=== PATIENT | male | born 1955 ===

== ENCOUNTER 2025-10-19 10:10 | Inpatient (IN) | payer SELFPAY ==
[~2025-10-19] VITALS: Ht 172.7 cm; Wt 71.4 kg
[2025-10-19 10:59] LABS: BASOPHILS ABSOLUTE AUTO 0.05 K/mm3 (0.00-0.23); BASOPHILS PERCENT AUTO 0 % (0-2); EOSINOPHILS ABSOLUTE AUTO 0.07 K/mm3 (0.00-0.68); EOSINOPHILS PERCENT AUTO 0 % (0-6); Hematocrit 47.1 % (37.0-53.0); Hemoglobin 16.4 g/dL (13.5-17.5); IMMATURE GRAN ABSOLUTE AUTO 0.09 K/mm3 (0.00-0.10); IMMATURE GRAN PERCENT AUTO 1 % (0-1); LYMPHOCYTES ABSOLUTE AUTO 2.66 K/mm3 (0.84-5.20); LYMPHOCYTES PERCENT AUTO 14 % (21-46); MONOCYTES ABSOLUTE AUTO 1.37 K/mm3 (0.16-1.47); MONOCYTES PERCENT AUTO 7 % (4-13); Mean Corpuscular HGB Conc 34.8 g/dL (31.5-36.5); Mean Corpuscular Volume 94 fL (80-100); NEUTROPHILS ABSOLUTE AUTO 15.39 K/mm3 (1.96-9.15); NEUTROPHILS PERCENT AUTO 78 % (41-73); NRBC ABSOLUTE 0.00 K/mm3 (0.00-0.02); NRBC Auto 0.0 /100 WBC (0.0-0.2); Platelet Count 213 K/mm3 (150-400); RDW Coefficient Variation 12.6 % (11.7-14.2); RDW Standard Deviation 43.6 fL (35.1-46.3)
[2025-10-19 11:29] LABS: Alanine Aminotransfer (ALT/SGP 130.0 U/L (12-78); Albumin, Blood 3.7 g/dL (3.4-5.0); Albumin/Globulin Ratio 0.9 (0.8-1.8); Anion Gap 9.0 mmol/L (3-11); Aspartate Aminotrans (AST/SGOT 65.0 U/L (12-37); Bilirubin, Total 1.4 mg/dL (0.1-1.0); Blood Urea Nitrogen 16.0 mg/dL (8-24); CO2, Blood 25.0 mmol/L (21-32); Calcium, Blood 8.8 mg/dL (8.5-10.1); Chloride, Blood 103.0 mmol/L (98-108); Creatinine, Blood 0.86 mg/dL (0.60-1.20); Globulin, Blood 4.0 g/dL (2.2-4.0); Glucose, Blood 163.0 mg/dL (70-99); Potassium, Blood 4.2 mmol/L (3.5-5.5); Sodium, Blood 133.0 mmol/L (136-145); Total Protein, Blood 7.7 g/dL (6.4-8.2)
[2025-10-19] MEDS ORDERED: Morphine Sulfate 4 MG/1 ML Injection IV ONE (12:40)
[2025-10-19] MEDS ORDERED: Piperacillin/Tazobactam Sod 4.5 GM in NS 100 ML IV ONE (14:20)
[2025-10-19] MEDS ORDERED: Ondansetron HCl 2 MG / ML 2ML Vial IV PRN (14:50)
[2025-10-19] MEDS ORDERED: HYDROmorphone HCl/Pf 1MG SYR IV PRN (14:50)
[2025-10-19] MEDS ORDERED: FLU VACC TS2025(65UP)/MF59C/PF 45 MCG/0.5 ML SYRINGE IM SCH (14:55)
[2025-10-19] MEDS ORDERED: MetroNIDAZOLE 500MG/NS 100 ml 100 ML IV ONE (15:25)
[2025-10-19] MEDS ORDERED: Ciprofloxacin 400MG/D5 200ML 200 ML IV ONE (15:25)
[2025-10-19 15:53] VITALS: BP 126/78
--- NOTE | 2025-10-19 17:38 | NUR ---
SHIFT SUMMARY PT BROUGHT UP FROM THE ER TODAY ADMITTED FOR AN ACUTE NOREEN, A/OX4, VSS, HE IS ABLE TO TOLERATE FLUID INTAKE PO, PRIMARILY AZERBAIJANI SPEAKING SO THE DIETITIAN CONSULTANT PHONE WAS SET UP IN HIS ROOM. DISCUSSED HOME MEDS AND MEDICAL HX WITH HIM, HE REPORTS NOT TAKING ANY HOME MEDICATIONS. PLAN FOR SURGERY TOMORROW, NPO AT MIDNIGHT. CALL LIGHT IN REACH.
[2025-10-19] MEDS ORDERED: Piperacillin/Tazobactam Sod 3.375 GM in NS 100 ML IV SCH (18:00)
[2025-10-19 19:09] VITALS: BP 133/69
[2025-10-19] MEDS ORDERED: NS 250 ML IV PRN (21:55)
[2025-10-20] VITALS (16 sets, daily range): BP systolic 116–140; BP diastolic 63–85
[2025-10-20 03:15] LABS: BASOPHILS ABSOLUTE AUTO 0.04 K/mm3 (0.00-0.23); BASOPHILS PERCENT AUTO 0 % (0-2); EOSINOPHILS ABSOLUTE AUTO 0.33 K/mm3 (0.00-0.68); EOSINOPHILS PERCENT AUTO 2 % (0-6); Hematocrit 41.4 % (37.0-53.0); Hemoglobin 14.5 g/dL (13.5-17.5); IMMATURE GRAN ABSOLUTE AUTO 0.08 K/mm3 (0.00-0.10); IMMATURE GRAN PERCENT AUTO 0 % (0-1); LYMPHOCYTES ABSOLUTE AUTO 2.30 K/mm3 (0.84-5.20); LYMPHOCYTES PERCENT AUTO 12 % (21-46); MONOCYTES ABSOLUTE AUTO 1.59 K/mm3 (0.16-1.47); MONOCYTES PERCENT AUTO 9 % (4-13); Mean Corpuscular HGB Conc 35.0 g/dL (31.5-36.5); Mean Corpuscular Volume 93 fL (80-100); NEUTROPHILS ABSOLUTE AUTO 14.34 K/mm3 (1.96-9.15); NEUTROPHILS PERCENT AUTO 77 % (41-73); NRBC ABSOLUTE 0.00 K/mm3 (0.00-0.02); NRBC Auto 0.0 /100 WBC (0.0-0.2); Platelet Count 186 K/mm3 (150-400); RDW Coefficient Variation 12.7 % (11.7-14.2); RDW Standard Deviation 43.4 fL (35.1-46.3)
[2025-10-20 03:39] LABS: Alanine Aminotransfer (ALT/SGP 118.0 U/L (12-78); Albumin, Blood 2.7 g/dL (3.4-5.0); Albumin/Globulin Ratio 0.7 (0.8-1.8); Anion Gap 8.0 mmol/L (3-11); Aspartate Aminotrans (AST/SGOT 59.0 U/L (12-37); Bilirubin, Total 2.0 mg/dL (0.1-1.0); Blood Urea Nitrogen 11.0 mg/dL (8-24); CO2, Blood 27.0 mmol/L (21-32); Calcium, Blood 8.5 mg/dL (8.5-10.1); Chloride, Blood 104.0 mmol/L (98-108); Creatinine, Blood 0.71 mg/dL (0.60-1.20); Globulin, Blood 3.7 g/dL (2.2-4.0); Glucose, Blood 111.0 mg/dL (70-99); Potassium, Blood 3.8 mmol/L (3.5-5.5); Sodium, Blood 135.0 mmol/L (136-145); Total Protein, Blood 6.4 g/dL (6.4-8.2)
--- NOTE | 2025-10-20 04:58 | NUR ---
INSPECTOR FIBROUS WALLBOARD SUMMARY NO ACUTE CHANGES THIS SHIFT. PT AAOX4 AND PLEASANT. HAS DENIED NAUSEA AND ONLY REQUIRED PAIN MEDS ONCE FOR ABD PAIN. ON CONTINUOUS FLUIDS AND ZOSYN Q6H. NPO SINCE MIDNIGHT IN PREP FOR OR LATER TODAY. PT USING URINAL INDEPENDENTLY. VSS, WCTM.
[2025-10-20] MEDS ORDERED: Bupivacaine 0.5% W/EPI 1:200000 SDV 30 ML Vial ONE (07:34)
[2025-10-20] MEDS ORDERED: FentaNYL Citrate 50 MCG/ML 5 ML Injection ONE (07:56)
[2025-10-20] MEDS ORDERED: Rocuronium Bromide 10 MG/ML 5ML Injection IV ONE (07:56)
[2025-10-20] MEDS ORDERED: FentaNYL Citrate 50 MCG/ML 2 ML Injection IV PRN ×2 (08:40→08:45)
[2025-10-20] MEDS ORDERED: Ondansetron HCl 2 MG / ML 2ML Vial IV PRN (08:40)
[2025-10-20] MEDS ORDERED: HYDROmorphone HCl/Pf 1MG SYR IV PRN ×2 (08:45)
[2025-10-20] MEDS ORDERED: Labetalol HCL 5 MG/ML 4ML Injection (Single Dose) IV PRN (08:45)
[2025-10-20] MEDS ORDERED: HYDROmorphone HCl/Pf 1MG SYR ONE (10:02)
[2025-10-20] MEDS ORDERED: Ondansetron HCl 2 MG / ML 2ML Vial ONE (11:00)
[2025-10-20] MEDS ORDERED: Sugammadex Sodium 200 MG/2ML SDV (100 MG/ML) ONE (11:05)
[2025-10-20] MEDS ORDERED: FentaNYL Citrate 50 MCG/ML 2 ML Injection ONE (11:50)
--- NOTE | 2025-10-20 12:35 | NUR ---
PACU TO 227 PT BROUGHT OUT TO HIS ROOM FROM PACU VIA GURNEY, SLIDER SHEET AND 4 STAFF TO SLIDE TRANSFER HIM TO HIS BED. SOMMER DRAIN IN PLACE TO ORI, 5 LAPS C/D/I. SOMMER SITE HAS SMALL AMOUNT OF SANG DRAINAGE OOZING OUT OF THE DRESSING WHICH WAS CLEANED UP WITH CLEAN GAUZE AND SALINE. PT DENIES PAIN AT THIS TIME, POST OP VITALS STARTED. NO NEEDS AT THIS TIME.
[2025-10-20] MEDS ORDERED: HYDROcodone 5-APAP 325 TAB PO PRN (12:50)
--- NOTE | 2025-10-20 20:20 | NUR ---
SHIFT SUMMARY POD0 LAP NOREEN, A/OX4, VSS, TOLERATING PO, PAIN TOLERABLE PER PATIENT, LAP SITES C/D/I, SMALL AMT OF SANG DRAINAGE IN SOMMER, HIS SOMMER HAD SOME OOZING AROUND THE TUBING WHICH WAS CLEANED AND REINFORCED. IV ABX, CLEAR LIQUID DIET. NO ACUTE EVENTS, CALL LIGHT IN REACH.
[2025-10-21] VITALS (7 sets, daily range): BP systolic 112–145; BP diastolic 67–84
[2025-10-21 04:54] LABS: BASOPHILS ABSOLUTE AUTO 0.02 K/mm3 (0.00-0.23); BASOPHILS PERCENT AUTO 0 % (0-2); EOSINOPHILS ABSOLUTE AUTO 0.00 K/mm3 (0.00-0.68); EOSINOPHILS PERCENT AUTO 0 % (0-6); Hematocrit 35.7 % (37.0-53.0); Hemoglobin 12.4 g/dL (13.5-17.5); IMMATURE GRAN ABSOLUTE AUTO 0.07 K/mm3 (0.00-0.10); IMMATURE GRAN PERCENT AUTO 1 % (0-1); LYMPHOCYTES ABSOLUTE AUTO 1.37 K/mm3 (0.84-5.20); LYMPHOCYTES PERCENT AUTO 10 % (21-46); MONOCYTES ABSOLUTE AUTO 0.74 K/mm3 (0.16-1.47); MONOCYTES PERCENT AUTO 5 % (4-13); Mean Corpuscular HGB Conc 34.7 g/dL (31.5-36.5); Mean Corpuscular Volume 94 fL (80-100); NEUTROPHILS ABSOLUTE AUTO 12.21 K/mm3 (1.96-9.15); NEUTROPHILS PERCENT AUTO 85 % (41-73); NRBC ABSOLUTE 0.00 K/mm3 (0.00-0.02); NRBC Auto 0.0 /100 WBC (0.0-0.2); Platelet Count 186 K/mm3 (150-400); RDW Coefficient Variation 12.5 % (11.7-14.2); RDW Standard Deviation 42.9 fL (35.1-46.3)
[2025-10-21 05:26] LABS: Alanine Aminotransfer (ALT/SGP 92.0 U/L (12-78); Albumin, Blood 2.2 g/dL (3.4-5.0); Albumin/Globulin Ratio 0.6 (0.8-1.8); Anion Gap 7.0 mmol/L (3-11); Aspartate Aminotrans (AST/SGOT 46.0 U/L (12-37); Bilirubin, Total 1.1 mg/dL (0.1-1.0); Blood Urea Nitrogen 11.0 mg/dL (8-24); CO2, Blood 26.0 mmol/L (21-32); Calcium, Blood 8.4 mg/dL (8.5-10.1); Chloride, Blood 109.0 mmol/L (98-108); Creatinine, Blood 0.69 mg/dL (0.60-1.20); Globulin, Blood 3.7 g/dL (2.2-4.0); Glucose, Blood 149.0 mg/dL (70-99); Potassium, Blood 3.9 mmol/L (3.5-5.5); Sodium, Blood 138.0 mmol/L (136-145); Total Protein, Blood 5.9 g/dL (6.4-8.2)
--- NOTE | 2025-10-21 05:37 | NUR ---
SHIFT SUMMARY AOX4. POD 1-LAP APPY, LAD & HERNIA REPAIR. x4 LAP SITES W/GAUZE & TEGADERM C/D/I. SOMMER TO R SIDE ABD W/110 ML SANGUINOUS DRAINAGE, CHANGED TEGADERM & GAUZE AROUND SOMMER SITE SINCE IT WAS MOD SATURATED, C/D/I SINCE. DENIES N/V. HYPERACTIVE BT. REPORTS PASSING FLATUS. DENIES ANY ABD PAIN. HAS VOIDED W/URINAL MULTIPLE TIMES. CALL LIGHT IN REACH & PT ABLE TO MAKE NEEDS KNOWN.
[2025-10-21] MEDS ORDERED: Enoxaparin 40 MG/0.4 ML SYR SC SCH (11:00)
--- NOTE | 2025-10-21 17:23 | NUR ---
SHIFT SUMMARY HAS DONE WELL TODAY. DIET ADVANCED TO REGULAR. DENIES NAUSEA, REPORTS PASSING GAS & ABD SOFT. SOMMER w/ MINIMAL OUTPUT. DENIES PAIN.
--- NOTE | 2025-10-22 03:23 | NUR ---
NOC SUMMARY- PT DENIES PAIN OR DISCOMFORT. SOMMER DRAIN DRAINING SS FLUID. PT LAP SITES ARE C/D/I. PT VOIDING. PT HAD A INCOTIENT BM THIS SHIFT. PT TOLERATING PO AND IS AMBULATORY. NO NEW ISSUES. CALL LIGHT IN REACH.
[2025-10-22 05:17] VITALS: BP 132/84
[2025-10-22 06:56] VITALS: BP 131/85
[2025-10-22] MEDS ORDERED: Norco 5-325 Ta1 EACH PO (09:15)
--- NOTE | 2025-10-22 10:25 | NUR ---
DISCHARGE INSTRUCTION REVIEWED. STATED UNDERSTANDING. DISCHARGED TO POV ACCOMPANIED BY WITH WITH PROVIDED PRINTED DISCHARGE/RX FOR OXYCODONE/ AND WITH DRAIN SUPPLIES AND RECORDING SHEET. DRAIN CARE TAUGHT DURING DISCHARGE. DISCHARGE COMPLETED WITH HELP OF INTERPRETIVE SERVICES.
== END 2025-10-22 10:27 | disposition home or self-care (01) | DRG 419 ==
LOC: ER 10:10 → SURS 14:44
PROVIDERS: Emergency Medicine; ADMIT Surgery
PROC: 0WQF4ZZ Repair Abdominal Wall, Percutaneous Endoscopic Approach (ICD-10-PCS; 2025-10-20)
PROC: 0DN84ZZ Release Small Intestine, Percutaneous Endoscopic Approach (ICD-10-PCS; 2025-10-20)
PROC: 0DNU4ZZ Release Omentum, Percutaneous Endoscopic Approach (ICD-10-PCS; 2025-10-20)
PROC: BF10YZZ Fluoroscopy of Bile Ducts using Other Contrast (ICD-10-PCS; 2025-10-20)
PROC: 0FT44ZZ Resection of Gallbladder, Percutaneous Endoscopic Approach (ICD-10-PCS; principal; 2025-10-20 08:00)
DX: K81.0 Acute cholecystitis (principal); K82.A1 Gangrene of gallbladder in cholecystitis; K66.0 Peritoneal adhesions (postprocedural) (postinfection); K43.2 Incisional hernia without obstruction or gangrene; Z90.49 Acquired absence of other specified parts of digestive tract
CPT/HCPCS: 36415; 71046; 71260; 74177; 80053; 83605; 83690; 83880; 84484; 85025; 85379; 88304; 94760; 96374-59; 99285-25; A9270; J0744; J1171; J1650; J2270; J2405; J2543; J2704; J3010; J7050; J7120; Q9967